=== PATIENT | male | born 1990 | race Caucasian/White ===

== ENCOUNTER → 2022-01-06 08:11 | Outpatient (BNVA) | payer OTHER, SELFPAY | PROVIDERS: Family Provider Nurse Practitioner; PCP Family Medicine; Visit Provider Clinical Nurse Specialist Adult Health | DX: R53.83 Other fatigue (principal); Z91.89 Other specified personal risk factors, not elsewhere classified | CPT/HCPCS: 80053; 85025; 86618; 86666; 86757 ==

== ENCOUNTER 2022-01-12 07:09 | Outpatient (CLI) | payer OTHER, SELFPAY ==
--- NOTE | 2022-01-12 07:21 | XR_ITS ---
WS: [id number] Exam: XR chest 2V* [id number] Date/Time of Exam: 01/12/2022 7:21 AM Reason For Exam: shortness of breath, pleuritic pain No priors. The lungs are clear and fully inflated. Normal cardiomediastinal silhouette. Unremarkable regional [place] structures. No pleural effusions. XR/XR chest 2V* [id number] IMPRESSION: 1. Normal chest.
== END 2022-01-12 07:10 | disposition home or self-care (01) ==
LOC: RAD 07:15
PROVIDERS: PCP Family Medicine; Visit Provider Clinical Nurse Specialist Adult Health
DX: R06.02 Shortness of breath (principal); R07.81 Pleurodynia
CPT/HCPCS: 71046

== ENCOUNTER → 2022-07-18 11:40 | Outpatient (BNVA) | payer OTHER, SELFPAY | PROVIDERS: PCP Family Medicine; Visit Provider Family Medicine | DX: R42 Dizziness and giddiness (principal); F41.9 Anxiety disorder, unspecified; E03.9 Hypothyroidism, unspecified; R79.89 Other specified abnormal findings of blood chemistry | CPT/HCPCS: 82607; 84436; 84443; 84481; 85025 ==

== ENCOUNTER 2022-08-02 12:00 | Outpatient (CLI) | payer OTHER, SELFPAY | END 2022-08-02 12:01 | disposition home or self-care (01) | LOC: SLEEP 08-04 10:22 | PROVIDERS: PCP Family Medicine; Visit Provider Family Medicine | DX: G47.33 Obstructive sleep apnea (adult) (pediatric) (principal) | CPT/HCPCS: 82607; 84436; 84443; 84481; 85025; G0399 ==

== ENCOUNTER → 2022-08-04 14:44 | Outpatient (BNVA) | payer OTHER, SELFPAY | PROVIDERS: PCP Family Medicine; Visit Provider Family Medicine | DX: R79.89 Other specified abnormal findings of blood chemistry (principal); F41.9 Anxiety disorder, unspecified; R42 Dizziness and giddiness | CPT/HCPCS: 80053; 82040; 84270; 84403 ==

== ENCOUNTER → 2022-10-27 14:25 | Outpatient (BNVA) | payer OTHER, SELFPAY | PROVIDERS: PCP Family Medicine; Visit Provider Family Medicine | DX: E29.1 Testicular hypofunction (principal); R53.83 Other fatigue; E03.9 Hypothyroidism, unspecified; R79.89 Other specified abnormal findings of blood chemistry; R25.1 Tremor, unspecified; F41.9 Anxiety disorder, unspecified | CPT/HCPCS: 80053; 82040; 84270; 84403; 84443; 85025 ==

== ENCOUNTER → 2023-09-12 15:28 | Outpatient (BNVA) | payer OTHER, SELFPAY | PROVIDERS: PCP Family Medicine; Visit Provider Family Medicine | DX: I10 Essential (primary) hypertension (principal); E29.1 Testicular hypofunction; R25.1 Tremor, unspecified; R42 Dizziness and giddiness; R53.83 Other fatigue; E03.9 Hypothyroidism, unspecified; R79.89 Other specified abnormal findings of blood chemistry | CPT/HCPCS: 80053; 82040; 84270; 84403; 84436; 84443; 84481; 85025; 86140; 86160; 86162; 86235; 86255; 86376 ==

== ENCOUNTER 2024-10-03 12:59 | Outpatient (CLI) | payer OTHER, SELFPAY ==
--- NOTE | 2024-10-03 13:00 | CT_ITS ---
WS: [id number] CT ANGIOGRAM CEREBRAL AND CAROTID ARTERIES HISTORY: M54.2 - Cervicalgia, dizziness and headaches TECHNIQUE: CT angiogram is performed of the carotid and cerebral arteries. During arterial injection imaging is obtained from the skull vertex to the aortic arch in 1.25 mm imaging. Coronal and sagittal reformats are submitted. Additional multi planar reformats of the carotid and cerebral arteries are submitted, MIP imaging also reviewed. NASCET criteria utilized. All CT scans at [facility] use at least one of these dose optimization techniques: automated exposure control; mA and/or kV adjustment per patient size (includes targeted exams where dose is matched to clinical indication); or iterative reconstruction. CONTRAST: Omnipaque 350; 100 mL IV. DLP: 1306.70 mGy.cm COMPARISON: None available. Noncontrast CT head: No prior infarct. No edema or hemorrhage. Normal ventricles. Calcification towards the LEFT parietal vertex measures 6 mm. This may be a small extra-axial meningioma. There is no mass effect or cerebral edema. Carotid Angiogram: Right carotid: Common carotid artery: Arises normally from the innominate artery. No significant plaque or stenosis. Internal carotid artery: No plaque or stenosis. External carotid artery: Patent. Left carotid: Common carotid artery: Arises normally from the aorta. No significant plaque or stenosis. Internal carotid artery: No plaque or stenosis. External carotid artery: Patent. Right vertebral artery: Codominant, patent. Left vertebral artery: Codominant, patent. Subclavian arteries: No stenosis or significant abnormality. Upper thorax: Normal. Thyroid gland: Normal. Osseous structures: Unremarkable. CEREBRAL ANGIOGRAM: Intracranial vertebral arteries: Normal with no significant atherosclerosis. Basilar artery: No significant stenosis or occlusion. No aneurysm. Intracranial Internal carotid arteries: Demonstrates no significant stenosis or plaque. Middle cerebral arteries: Normal. Anterior cerebral arteries and ACOM: Normal. Posterior cerebral arteries and PCOM's: Normal. Dural venous sinuses are normally enhancing. Mastoid air cells: Normal. Paranasal sinuses: Normal. Calvarium: Normal. CT/CT angio headneck* [id number] IMPRESSION: 1. Normal carotid arteries. 2. Unremarkable [place].
--- NOTE | 2024-10-03 13:05 | XR_ITS ---
WS: [id number] XR cervical spine 3V* [id number] REASON FOR EXAM: M54.2 - Cervicalgia FINDINGS: Straightening of the normal lordosis. No significant vertebral body compression deformity or focal vertebral body lesion. The disc spaces are intact and relatively well preserved. No significant spondylolisthesis. Normal facet joints. XR/XR cervical spine 3V* [id number] IMPRESSION: Alteration of cervical spine curvature as above.
[2024-10-03] MEDS: iohexol 350 mg/mL 500 mL Btl (per mL) IV (13:19)
== END 2024-10-03 13:00 | disposition home or self-care (01) ==
LOC: RAD 13:00
PROVIDERS: PCP Family Medicine; Visit Provider Family Medicine
DX: M54.2 Cervicalgia (principal); I67.9 Cerebrovascular disease, unspecified
CPT/HCPCS: 70496; 70498; 72040